=== PATIENT | male | born 1955 | race Two or more races ===

== ENCOUNTER 2024-11-30 10:22 | Inpatient (IN) | payer OTHER ==
[~2024-11-30] VITALS: Ht 170.2 cm; Wt 64.9 kg
[2024-11-30] MEDS ORDERED: ZESTRIL10 M1 PO (10:35)
[2024-11-30] MEDS ORDERED: CARVEDILOL ER40 MG PO (10:35)
[2024-11-30] MEDS ORDERED: AMIODARONE HCL200 MG PO (10:37)
[2024-11-30] MEDS ORDERED: ATORVASTATIN CA40 MG PO (10:38)
[2024-11-30] MEDS ORDERED: LASIX20 MG PO (10:38)
[2024-11-30] MEDS ORDERED: WARFARIN SODIUM4 MG PO (10:38)
--- NOTE | 2024-11-30 10:41 | NUR ---
SE RECIBE PTE ALERTA Y ORIENTADO X3 . PTE [facility]AS [facility] DE [facility]ACE 3 COPE CON HEMOGLOBINA DE 7. PTE REFIERE SANGRADO RECTAL HACE SEYMOUR COPE Y DOLOR AL EVACUAR. PTE REFIERE MAREOS. SE MIDEN S/V Y SE UBICA.
[2024-11-30] MEDS ORDERED: 0.9 % SODIUM CHLORIDE 1,000 ML IV STA (11:03)
--- NOTE | 2024-11-30 11:49 | NUR ---
SE REALIZA LAB Y SE ORIENTA A PTE QUIEN REFIERE ENTENDER Y ACEPTAR. SE NOTIFICA ESTUDIO PENDIENTE A SECRETARIA. SE REALIZA EKG Y SE PRESENTA A DR. LEI
[2024-11-30 12:14] LABS: HEMATOCRIT 25.4 % (39.0-48.0); MEAN CELL VOLUME 87.6 fL (80.0-100.00); MEAN CORPUSCULAR HGB CONC 32.1 g/dl (32.0-36.0); PLATELET COUNT 325 K/uL (150-450); RED CELL DISTRIBUTION WIDTH 16.2 % (11.5-14.5)
[2024-11-30 12:15] LABS: HEMOGLOBIN 8.2 g/dL (13-16.00); MEAN CORPUSCULAR HEMOGLOBIN 28.2 pg (27.00-32.0)
[2024-11-30 12:17] LABS: PARTIAL THROMBOPLASTIN TIME 52.5 SECONDS (22.0-34.0)
[2024-11-30 12:29] LABS: ALBUMIN 3.4 gm/dL (3.4-5.0); ALKALINE PHOSPHATASE 59 U/L (50-136); ALT/SGPT 18 U/L (12-78); AMYLASE 56 U/L (25-115); ANION GAP 7 (10.0-20.0); AST/SGOT 19 U/L (15-37); BILIRUBIN TOTAL 0.29 mg/dL (0.3-1.2); BILIRUBIN,CONJUGATED < 0.10 mg/dL (0.0-0.2); BILIRUBIN,UNCONJUGATED 0.19 mg/dL (0.0-0.6); BLOOD UREA NITROGEN 15 mg/dL (7-18); BUN CREA RATIO 13 (7.0-25.0); CALCIUM 9.1 mg/dL (8.5-10.1); CARBON DIOXIDE 28 mEq/L (21-32); CHLORIDE 111 mmol/L (98-107); CREATININE SERUM 1.16 mg/dL (0.70-1.30); GFR 62.61; GLUCOSE FASTING 88 mg/dL (65-100); LIPASE 43 U/L (13-75); OSMOLALITY SERUM 283 MOSM/KG (275-295); POTASSIUM 4.45 mEq/L (3.5-5.1); SODIUM 142 mmol/L (136-145); TOTAL PROTEIN 7.4 gm/dL (6.4-8.2)
[2024-11-30 12:32] LABS: PROTHROMBIN TIME > 90.0 SECONDS (9.0-11.5)
[2024-11-30] MEDS ORDERED: FAMOTIDINE/PF 20 MG/2 ML VIAL ONE (12:45)
[2024-11-30] MEDS ORDERED: ONDANSETRON HCL 2 MG/ML VIAL ONE (12:45)
[2024-11-30] MEDS ORDERED: DIATRIZOATE MEGLUMINE, SODIUM 30 ML BOTTLE ONE (12:45)
[2024-11-30 13:56] LABS: PH,URINE 5.5 (5.0-8.0); URINE APPEARANCE Clear; URINE BILIRRUBIN Negative (NEGATIVE); URINE BLOOD Negative; URINE COLOR Yellow; URINE GLUCOSE Negative (NEGATIVE); URINE KETONE Trace (NEGATIVE); URINE LEUKOCYTE Negative; URINE NITRATE Negative; URINE PROTEIN Trace (NEGATIVE)
[2024-11-30 14:00] LABS: URINE BACTERIA 15.9 uL (0.0-1933); URINE CAST 1.91 uL (0.0-1.40); URINE EPITHELIAL CELLS 6.4 uL (0.0-38.8); URINE RBC 4.4 uL (0.0-20.8); URINE WBC 3.3 uL (0.0-23.2)
[2024-11-30 14:04] LABS: FECAL LEUKOCYTES POSITIVE (NEGATIVE); ob POSITIVE (NEGATIVE)
[2024-11-30 14:18] LABS: INFLUENZA A AG NEGATIVE (NEGATIVE)
[2024-11-30] MEDS ORDERED: MORPHINE SULFATE 4 MG/ML CARTRIDGE IV ONE (17:30)
[2024-11-30] MEDS ORDERED: PHYTONADIONE 10 MG/ML AMPUL IV ONE (17:30)
[2024-11-30] MEDS ORDERED: PANTOPRAZOLE SODIUM 40 MG/VIAL VIAL IV ONE (17:30)
[2024-11-30] MEDS ORDERED: METRONIDAZOLE/SODIUM CHLORIDE 100 ML IV SCH (17:33)
[2024-11-30] MEDS ORDERED: CEFTRIAXONE SODIUM 2,000 MG in 0.9 % SODIUM CHLORIDE 100 ML IV SCH (17:33)
[2024-11-30] MEDS ORDERED: ACETAMINOPHEN 500 MG GEL..CAP PO PRN (17:45)
[2024-11-30] MEDS ORDERED: MORPHINE SULFATE 4 MG/ML CARTRIDGE IV PRN (17:45)
[2024-11-30] MEDS ORDERED: 0.9 % SODIUM CHLORIDE 1,000 ML IV SCH (17:45)
[2024-11-30] MEDS ORDERED: ONDANSETRON HCL 4 MG in 0.9 % SODIUM CHLORIDE 50 ML IV PRN (17:45)
[2024-11-30] MEDS ORDERED: CEFTRIAXONE SODIUM 2,000 MG VIAL ONE (17:57)
[2024-11-30] MEDS ORDERED: PHYTONADIONE 10 MG/ML AMPUL ONE (19:09)
[2024-11-30] MEDS ORDERED: ENALAPRILAT DIHYDRATE 1.25 MG/ML VIAL IV PRN (19:15)
[2024-11-30 20:00] VITALS: BP 155/70; O2SAT 100
[2024-11-30 21:00] VITALS: BP 130/50; O2SAT 100
[2024-11-30] MEDS ORDERED: CIPROFLOXACIN IN 5 % DEXTROSE 200 ML IV SCH (21:00)
[2024-11-30 23:38] VITALS: BP 97/51; O2SAT 100
[2024-12-01 04:04] VITALS: BP 105/50; O2SAT 100
[2024-12-01 08:46] VITALS: BP 156/64; O2SAT 100
[2024-12-01] MEDS ORDERED: PANTOPRAZOLE SODIUM 40 MG/VIAL VIAL IV SCH (09:00)
[2024-12-01] MEDS ORDERED: AMIODARONE HCL 200 MG TABLET PO SCH (09:00)
[2024-12-01 18:10] VITALS: BP 144/77
[2024-12-01 23:30] VITALS: BP 167/72; O2SAT 97
[2024-12-02 03:03] VITALS: BP 128/67
[2024-12-02 06:18] LABS: HEMATOCRIT 29.9 % (39.0-48.0); MEAN CELL VOLUME 82.1 fL (80.0-100.00); MEAN CORPUSCULAR HGB CONC 32.6 g/dl (32.0-36.0); PLATELET COUNT 273 K/uL (150-450); RED BLOOD COUNT 3.64 M/uL (4.00-6.00)
[2024-12-02 06:29] LABS: INR 1.3; PROTHROMBIN TIME 13.9 SECONDS (9.0-11.5)
[2024-12-02 06:48] LABS: ALBUMIN 2.9 gm/dL (3.4-5.0); BILIRUBIN TOTAL 0.95 mg/dL (0.3-1.2); CALCIUM 8.5 mg/dL (8.5-10.1); CREATININE SERUM 0.9 mg/dL (0.70-1.30); GFR 83.91; GLOBULINA 3.3 G/DL (2.4-3.5); MAGNESIUM 1.6 mg/dL (1.8-2.4); PHOSPHOROUS 3.3 mg/dL (2.5-4.9); POTASSIUM 4.24 mEq/L (3.5-5.1); TOTAL PROTEIN 6.2 gm/dL (6.4-8.2)
[2024-12-02 06:49] LABS: C-REACTIVE PROTEIN 5.47 MG/DL (0.00-0.29)
[2024-12-02 07:27] LABS: HEMOGLOBIN 9.7 g/dL (13-16.00); MEAN CORPUSCULAR HEMOGLOBIN 26.6 pg (27.00-32.0)
[2024-12-02 07:28] LABS: RED CELL DISTRIBUTION WIDTH 19.6 % (11.5-14.5)
[2024-12-02 09:04] VITALS: BP 120/73
[2024-12-02] MEDS ORDERED: ATORVASTATIN CALCIUM 40 MG TABLET PO SCH (17:00)
[2024-12-02] MEDS ORDERED: CARVEDILOL 6.25 MG TABLET PO SCH (17:00)
[2024-12-02 18:10] VITALS: BP 122/65; O2SAT 100
[2024-12-03 02:44] VITALS: BP 109/57; O2SAT 96
[2024-12-03 06:20] LABS: INR 1.39; PROTHROMBIN TIME 14.8 SECONDS (9.0-11.5)
[2024-12-03] MEDS ORDERED: LISINOPRIL 10 MG TABLET PO SCH (09:00)
[2024-12-03 10:05] VITALS: BP 128/66; O2SAT 96
[2024-12-03 16:30] VITALS: BP 137/70; O2SAT 98
[2024-12-03 20:00] VITALS: BP 122/49; O2SAT 100
[2024-12-04 02:04] VITALS: BP 136/78; O2SAT 97
[2024-12-04 10:19] VITALS: BP 152/76; O2SAT 98
[2024-12-04 17:39] VITALS: BP 138/75; O2SAT 99
[2024-12-05 02:47] VITALS: BP 127/78; O2SAT 98
[2024-12-05 07:48] LABS: HEMOGLOBIN 9.2 g/dL (13-16.00); MEAN CELL VOLUME 83.4 fL (80.0-100.00); MEAN CORPUSCULAR HEMOGLOBIN 27.5 pg (27.00-32.0); PLATELET COUNT 251 K/uL (150-450); RED BLOOD COUNT 3.36 M/uL (4.00-6.00); RED CELL DISTRIBUTION WIDTH 19.2 % (11.5-14.5)
[2024-12-05 10:04] VITALS: BP 134/71; O2SAT 97
[2024-12-05 17:10] VITALS: BP 146/72
[2024-12-05] MEDS ORDERED: ENOXAPARIN SODIUM 60 MG/0.6 ML SYRINGE SUBCUTANEO SCH (21:00)
[2024-12-06 01:32] VITALS: BP 156/74; O2SAT 96
[2024-12-06 08:21] VITALS: BP 165/86; O2SAT 75
[2024-12-06 16:56] VITALS: BP 151/76
[2024-12-06] MEDS ORDERED: FUROsemide 20 MG/2 ML VIAL IV SCH (17:00)
[2024-12-07 01:49] VITALS: BP 148/71
[2024-12-07 07:43] LABS: HEMATOCRIT 27.3 % (39.0-48.0); HEMOGLOBIN 9.1 g/dL (13-16.00); MEAN CELL VOLUME 82.4 fL (80.0-100.00); MEAN CORPUSCULAR HEMOGLOBIN 27.3 pg (27.00-32.0); MEAN CORPUSCULAR HGB CONC 33.2 g/dl (32.0-36.0); PLATELET COUNT 231 K/uL (150-450); RED BLOOD COUNT 3.32 M/uL (4.00-6.00); RED CELL DISTRIBUTION WIDTH 19.3 % (11.5-14.5)
[2024-12-07] MEDS ORDERED: PEG3350/SOD SULF,BICARB,CL/KCL 4,000 ML GALLON PO NR (10:00)
[2024-12-07] MEDS ORDERED: CLONAZEPAM 0.5 MG TABLET PO STA (13:19)
[2024-12-07 15:58] LABS: CALCIUM 8.7 mg/dL (8.5-10.1); CREATININE SERUM 1.01 mg/dL (0.70-1.30); GFR 73.46; POTASSIUM 4.18 mEq/L (3.5-5.1)
[2024-12-07 17:09] VITALS: BP 162/79
[2024-12-08 01:06] VITALS: BP 140/69; O2SAT 98
[2024-12-08 08:23] VITALS: BP 139/64; O2SAT 98
[2024-12-08] MEDS ORDERED: FUROsemide 20 MG/2 ML VIAL IV SCH (09:00)
[2024-12-08 11:06] LABS: campy Final report (.)
[2024-12-08 12:48] LABS: HEMATOCRIT 31.8 % (39.0-48.0); HEMOGLOBIN 10.2 g/dL (13-16.00); MEAN CELL VOLUME 83.1 fL (80.0-100.00); MEAN CORPUSCULAR HEMOGLOBIN 26.7 pg (27.00-32.0); MEAN CORPUSCULAR HGB CONC 32.2 g/dl (32.0-36.0); PLATELET COUNT 300 K/uL (150-450); RED BLOOD COUNT 3.82 M/uL (4.00-6.00)
[2024-12-08 13:24] LABS: INR 1.33; PROTHROMBIN TIME 14.2 SECONDS (9.0-11.5)
[2024-12-08] MEDS ORDERED: fentaNYL CITRATE 50 MCG/ML AMPUL IV PUSH ONE (16:15)
[2024-12-08] MEDS ORDERED: DIPHENHYDRAMINE HCL 50 MG/ML VIAL 1ML IV NR (16:15)
[2024-12-08] MEDS ORDERED: MIDAZOLAM HCL 2 MG/2 ML VIAL IV ONE (16:15)
[2024-12-08] MEDS ORDERED: ONDANSETRON HCL 2 MG/ML VIAL IV ONE (16:15)
[2024-12-08] MEDS ORDERED: METRONIDAZOLE/SODIUM CHLORIDE 100 ML IV SCH (17:00)
[2024-12-08 17:36] VITALS: BP 124/58
[2024-12-08] MEDS ORDERED: ONDANSETRON HCL 2 MG/ML VIAL IV PRN (17:45)
[2024-12-08] MEDS ORDERED: POLYETHYLENE GLYCOL 3350 17 GM BLIST.PACK PO SCH (21:00)
[2024-12-08] MEDS ORDERED: CIPROFLOXACIN IN 5 % DEXTROSE 200 ML IV SCH (21:00)
[2024-12-09] MEDS ORDERED: POLYETHYLENE GLYCOL 3350 17 GM BLIST.PACK PO SCH (09:00)
[2024-12-10 02:04] VITALS: BP 131/64; O2SAT 98
[2024-12-10 09:19] VITALS: BP 131/67
[2024-12-10 18:04] VITALS: BP 114/55; O2SAT 97
[2024-12-10] MEDS ORDERED: CLONAZEPAM 0.5 MG TABLET PO SCH (21:00)
[2024-12-11 02:33] VITALS: BP 113/54; O2SAT 97
[2024-12-11 09:42] VITALS: BP 124/57; O2SAT 97
[2024-12-11 15:06] LABS: quan ag 0 IU/mL (.); quan ag 0.01 IU/mL (.); quan mito 0.61 IU/mL (.); quant nil 0 IU/mL (.)
== END 2024-12-11 16:46 | disposition home or self-care (01) | DRG 375 ==
LOC: ER 10:23 → MEDI 20:13 → ICU-2 20:13 → SEC-K 12-01 11:38 → MEDI 12-01 14:16
PROVIDERS: General Practice; Internal Medicine; Internal Medicine Infectious Disease; Student in an Organized Health Care Education/Training Program; ADMIT Internal Medicine; ATTEND Internal Medicine
PROC: BW21ZZZ Computerized Tomography (CT Scan) of Abdomen and Pelvis (ICD-10-PCS; 2024-11-30)
PROC: 4A12X4Z Monitoring of Cardiac Electrical Activity, External Approach (ICD-10-PCS; 2024-12-01)
PROC: 30233N1 Transfusion of Nonautologous Red Blood Cells into Peripheral Vein, Percutaneous Approach (ICD-10-PCS; 2024-12-01)
PROC: BW24ZZZ Computerized Tomography (CT Scan) of Chest and Abdomen (ICD-10-PCS; 2024-12-03)
PROC: BW3GYZZ Magnetic Resonance Imaging (MRI) of Pelvic Region using Other Contrast (ICD-10-PCS; 2024-12-03)
PROC: B24BZZZ Ultrasonography of Heart with Aorta (ICD-10-PCS; 2024-12-05)
PROC: 0DBP8ZX Excision of Rectum, Via Natural or Artificial Opening Endoscopic, Diagnostic (ICD-10-PCS; principal; 2024-12-08)
DX: C20 Malignant neoplasm of rectum (principal); K62.5 Hemorrhage of anus and rectum; E78.5 Hyperlipidemia, unspecified; K62.89 Other specified diseases of anus and rectum; I25.10 Atherosclerotic heart disease of native coronary artery without angina pectoris; I11.0 Hypertensive heart disease with heart failure; I50.9 Heart failure, unspecified; G47.33 Obstructive sleep apnea (adult) (pediatric); I48.91 Unspecified atrial fibrillation; D63.0 Anemia in neoplastic disease
CPT/HCPCS: 72196

== ENCOUNTER 2025-01-12 10:12 | Inpatient (IN) | payer OTHER ==
[~2025-01-12] VITALS: Ht 167.6 cm; Wt 67.1 kg
[~2025-01-12 10:12] MED LIST: AMIODARONE HCL200 MG PO; ATORVASTATIN CA40 MG PO; CARVEDILOL ER40 MG PO; LASIX20 MG PO; WARFARIN SODIUM4 MG PO; ZESTRIL10 M1 PO
[2025-01-12] MEDS ORDERED: ELIQUIS5 M1 PO (10:34)
--- NOTE | 2025-01-12 10:34 | NUR ---
PTE RFIEFE DOLOR DOLOR ABDOMIHAL Y DIARREAS DESDE HACE VARIOS COPE. SE LE IVETTE S/V Y SE UBICA EN PASILLO.
[2025-01-12] MEDS ORDERED: FAMOTIDINE/PF 20 MG/2 ML VIAL ONE (11:59)
[2025-01-12] MEDS ORDERED: FAMOtidine 10 MG/ML (4ML VIAL) IV ONE (12:00)
[2025-01-12] MEDS ORDERED: CLONAZEPAM 0.5 MG TABLET PO ONE (12:00)
[2025-01-12] MEDS ORDERED: 0.9 % SODIUM CHLORIDE 1,000 ML IV ONE (12:00)
[2025-01-12 13:09] LABS: BASO % 0.2 % (0.1-1.2); EOS # 0.03 (0.04-0.54); EOS % 0.3 % (0.7-7.0); HEMATOCRIT 30.3 % (40.1-51.0); HEMOGLOBIN 9.4 g/dL (13.7-17.5); LYMPH # 1.66 (1.18-3.74); LYMPH % 15.3 % (19.3-53.1); MEAN CORPUSCULAR HEMOGLOBIN 25.9 pg (25.6-32.2); MONO # 1.78 (0.24-0.82); NEUT # 7.34 (1.56-6.13); NEUT % 67.5 % (34.0-71.1); PLATELET COUNT 344 K/uL (163-369); RED BLOOD COUNT 3.63 M/uL (4.63-6.08); RED CELL DISTRIBUTION WIDTH 19.3 % (11.6-14.4)
[2025-01-12 13:16] LABS: MONO % 16.4 % (4.7-12.5)
--- NOTE | 2025-01-12 13:19 | NUR ---
SE ORIENTA A PTE SOBRE TX MEDICO EL MISMO INDICA ENTENDER Y ACEPTAR, SE AZALIA MUESTRAS DE LAB MAS SE ADMINISTRAN MEDICMENTOS NATY ORDEN MEDICA BAJO MEDIDAS ASEPTICAS.
[2025-01-12 13:34] LABS: ALBUMIN 3.6 gm/dL (3.4-5.0); BILIRUBIN TOTAL 0.52 mg/dL (0.3-1.2); CALCIUM 9.2 mg/dL (8.5-10.1); CREATININE SERUM 1.23 mg/dL (0.70-1.30); GFR 58.52; POTASSIUM 4.12 mEq/L (3.5-5.1); TOTAL PROTEIN 8.6 gm/dL (6.4-8.2)
[2025-01-12] MEDS ORDERED: 0.9 % SODIUM CHLORIDE 1,000 ML IV SCH (19:45)
[2025-01-12] MEDS ORDERED: ONDANSETRON HCL 4 MG in 0.9 % SODIUM CHLORIDE 50 ML IV PRN (19:45)
[2025-01-12] MEDS ORDERED: KETOROLAC TROMETHAMINE 30 MG VIAL IU PRN (20:00)
[2025-01-12] MEDS ORDERED: ACETAMINOPHEN 325 MG TABLET PO PRN (20:00)
[2025-01-12] MEDS ORDERED: CLONAZEPAM 0.5 MG TABLET PO SCH (21:00)
[2025-01-12 21:02] LABS: COVID-19 AG NEGATIVE (NEGATIVE); INFLUENZA A AG NEGATIVE (NEGATIVE); INFLUENZA B AG NEGATIVE (NEGATIVE)
[2025-01-12 21:53] LABS: PH,URINE 5.5 (5.0-8.0); URINE APPEARANCE Clear; URINE BILIRRUBIN Negative (NEGATIVE); URINE BLOOD Negative; URINE COLOR Yellow; URINE GLUCOSE Negative (NEGATIVE); URINE KETONE 15 (NEGATIVE); URINE LEUKOCYTE Negative; URINE NITRATE Negative; URINE PROTEIN 30 (NEGATIVE); URINE UROBILINOGEN 0.2 E.U./dl
[2025-01-12 21:56] LABS: URINE BACTERIA 7.3 uL (0.0-1933); URINE EPITHELIAL CELLS 2.6 uL (0.0-38.8); URINE RBC 7.9 uL (0.0-20.8); URINE WBC 3.1 uL (0.0-23.2)
[2025-01-12 22:07] LABS: URINE CAST 0.14 uL (0.0-1.40)
[2025-01-13 00:52] VITALS: BP 135/76
[2025-01-13] MEDS ORDERED: KETOROLAC TROMETHAMINE 30 MG VIAL IV PRN (07:15)
[2025-01-13] MEDS ORDERED: ACETAMINOPHEN 500 MG GEL..CAP PO PRN (07:15)
[2025-01-13 08:58] LABS: INR 1.1; PARTIAL THROMBOPLASTIN TIME 24.2 SECONDS (22.0-34.0); PROTHROMBIN TIME 11.9 SECONDS (9.0-11.5)
[2025-01-13] MEDS ORDERED: LISINOPRIL 10 MG TABLET PO SCH (09:00)
[2025-01-13] MEDS ORDERED: APIXABAN 5 MG TABLET PO SCH (09:00)
[2025-01-13] MEDS ORDERED: FUROsemide 20 MG TABLET PO SCH (09:00)
[2025-01-13] MEDS ORDERED: CARVEDILOL 6.25 MG TABLET PO SCH (09:00)
[2025-01-13] MEDS ORDERED: PANTOPRAZOLE SODIUM 40 MG/VIAL VIAL IV SCH ×2 (09:00→12:00)
[2025-01-13] MEDS ORDERED: AMIODARONE HCL 200 MG TABLET PO SCH (09:00)
[2025-01-13 09:13] VITALS: BP 101/46; O2SAT 96
[2025-01-13 09:30] LABS: ALBUMIN 2.9 gm/dL (3.4-5.0); BILIRUBIN TOTAL 0.52 mg/dL (0.3-1.2); CALCIUM 8.4 mg/dL (8.5-10.1); CREATININE SERUM 0.9 mg/dL (0.70-1.30); GFR 83.91; GLOBULINA 3.5 G/DL (2.4-3.5); POTASSIUM 3.94 mEq/L (3.5-5.1); TOTAL PROTEIN 6.4 gm/dL (6.4-8.2)
[2025-01-13 15:07] LABS: BASO % 0.1 % (0.1-1.2); EOS # 0.14 (0.04-0.54); EOS % 1.8 % (0.7-7.0); LYMPH # 1.51 (1.18-3.74); LYMPH % 19.8 % (19.3-53.1); MEAN CORPUSCULAR HEMOGLOBIN 26.6 pg (25.6-32.2); NEUT # 4.53 (1.56-6.13); NEUT % 59.6 % (34.0-71.1); PLATELET COUNT 252 K/uL (163-369); RED BLOOD COUNT 2.97 M/uL (4.63-6.08); RED CELL DISTRIBUTION WIDTH 19.3 % (11.6-14.4)
[2025-01-13 15:37] LABS: HEMATOCRIT 24.6 % (40.1-51.0); HEMOGLOBIN 7.9 g/dL (13.7-17.5); MONO % 18.4 % (4.7-12.5)
[2025-01-13] MEDS ORDERED: ATORVASTATIN CALCIUM 40 MG TABLET PO SCH (17:00)
[2025-01-13 18:24] VITALS: BP 123/58; O2SAT 99
[2025-01-13] MEDS ORDERED: CLONAZEPAM 1 MG TABLET PO SCH (21:00)
[2025-01-13 23:31] LABS: BASO % 0.1 % (0.1-1.2); EOS # 0.19 (0.04-0.54); EOS % 2.3 % (0.7-7.0); LYMPH # 1.64 (1.18-3.74); LYMPH % 19.6 % (19.3-53.1); MEAN CORPUSCULAR HEMOGLOBIN 26.3 pg (25.6-32.2); MONO # 1.61 (0.24-0.82); NEUT # 4.89 (1.56-6.13); NEUT % 58.4 % (34.0-71.1); PLATELET COUNT 254 K/uL (163-369); RED BLOOD COUNT 3.15 M/uL (4.63-6.08); RED CELL DISTRIBUTION WIDTH 19.6 % (11.6-14.4)
[2025-01-13 23:44] LABS: HEMATOCRIT 26.5 % (40.1-51.0); MONO % 19.2 % (4.7-12.5)
[2025-01-13 23:45] LABS: HEMOGLOBIN 8.3 g/dL (13.7-17.5)
[2025-01-14 01:59] VITALS: BP 99/47; O2SAT 98
[2025-01-14 06:49] LABS: ob POSITIVE (NEGATIVE)
[2025-01-14 08:48] VITALS: BP 120/46; O2SAT 98
[2025-01-14 11:38] LABS: BASO % 0.1 % (0.1-1.2); EOS % 1.2 % (0.7-7.0); HEMATOCRIT 30.6 % (40.1-51.0); HEMOGLOBIN 9.8 g/dL (13.7-17.5); LYMPH # 1.33 (1.18-3.74); LYMPH % 16.3 % (19.3-53.1); MEAN CORPUSCULAR HEMOGLOBIN 27.4 pg (25.6-32.2); MONO # 1.67 (0.24-0.82); NEUT # 5.02 (1.56-6.13); NEUT % 61.5 % (34.0-71.1); PLATELET COUNT 248 K/uL (163-369); RED BLOOD COUNT 3.58 M/uL (4.63-6.08); RED CELL DISTRIBUTION WIDTH 18.6 % (11.6-14.4)
[2025-01-14 11:44] LABS: MONO % 20.5 % (4.7-12.5)
[2025-01-14 17:46] VITALS: BP 129/59; O2SAT 100
[2025-01-15 02:08] VITALS: BP 109/56; O2SAT 99
[2025-01-15 08:55] VITALS: BP 129/80; O2SAT 100
[2025-01-15] MEDS ORDERED: BISMUTH SUBSALICYLATE 524 MG/30 ML BLIST.PACK PO PRN (15:15)
[2025-01-15 16:16] VITALS: BP 133/61; O2SAT 100
[2025-01-15] MEDS ORDERED: LACTOBACILLUS ACIDOPHILUS 1 CAP CAP PO SCH (17:00)
[2025-01-16 02:17] VITALS: BP 114/71; O2SAT 98
[2025-01-16 08:30] VITALS: BP 114/69; O2SAT 98
[2025-01-16] MEDS ORDERED: HEPARIN SODIUM,PORCINE/PF 100 UNIT/ML SYRINGE IV ONE (13:37)
[2025-01-16] MEDS ORDERED: LIDOCAINE HCL 1% 20 ML VIAL IJ ONE (13:37)
[2025-01-16 17:52] VITALS: BP 119/69; O2SAT 97
[2025-01-17 02:04] VITALS: BP 100/59; O2SAT 100
[2025-01-17 09:38] VITALS: BP 115/51; O2SAT 98
[2025-01-17] MEDS ORDERED: HEPARIN SODIUM,PORCINE/PF 100 UNIT/ML SYRINGE IV ONE (15:19)
[2025-01-17] MEDS ORDERED: KETOROLAC TROMETHAMINE 30 MG VIAL ONE (18:02)
[2025-01-18 02:27] VITALS: BP 116/58; O2SAT 98
[2025-01-18 08:34] LABS: BASO % 0.1 % (0.1-1.2); EOS # 0.08 (0.04-0.54); EOS % 0.9 % (0.7-7.0); LYMPH # 1.23 (1.18-3.74); LYMPH % 13.7 % (19.3-53.1); MEAN CORPUSCULAR HEMOGLOBIN 27.2 pg (25.6-32.2); MONO # 1.82 (0.24-0.82); NEUT % 64.8 % (34.0-71.1); PLATELET COUNT 184 K/uL (163-369); RED BLOOD COUNT 3.02 M/uL (4.63-6.08)
[2025-01-18 08:45] LABS: CALCIUM 8.3 mg/dL (8.5-10.1); CREATININE SERUM 0.99 mg/dL (0.70-1.30); GFR 75.17; POTASSIUM 3.85 mEq/L (3.5-5.1)
[2025-01-18 09:21] VITALS: BP 120/63; O2SAT 96
[2025-01-18 09:35] LABS: HEMATOCRIT 25.8 % (40.1-51.0); HEMOGLOBIN 8.2 g/dL (13.7-17.5); MONO % 20.3 % (4.7-12.5)
== END 2025-01-18 18:17 | disposition home or self-care (01) | DRG 378 ==
LOC: ER 10:12 → MEDJ 20:06
PROVIDERS: General Practice; Student in an Organized Health Care Education/Training Program; ADMIT Internal Medicine; ATTEND Internal Medicine
PROC: BW21YZZ Computerized Tomography (CT Scan) of Abdomen and Pelvis using Other Contrast (ICD-10-PCS; principal; 2025-01-12)
PROC: 30233N1 Transfusion of Nonautologous Red Blood Cells into Peripheral Vein, Percutaneous Approach (ICD-10-PCS; 2025-01-14)
PROC: 05HM33Z Insertion of Infusion Device into Right Internal Jugular Vein, Percutaneous Approach (ICD-10-PCS; 2025-01-17)
DX: K62.5 Hemorrhage of anus and rectum (principal); C20 Malignant neoplasm of rectum; K62.89 Other specified diseases of anus and rectum; D63.0 Anemia in neoplastic disease

== ENCOUNTER 2025-01-20 18:11 | Emergency (ER) | payer OTHER ==
[~2025-01-20] VITALS: Ht 294.6 cm; Wt 52.6 kg
[~2025-01-20 18:11] MED LIST changes: +ELIQUIS5 M1 PO
[2025-01-20] MEDS ORDERED: LORazepam 1 MG TABLET PO ONE (19:45)
[2025-01-20] MEDS ORDERED: 0.9 % SODIUM CHLORIDE 1,000 ML IV SCH (19:45)
[2025-01-20 20:56] LABS: BASO % 0.3 % (0.1-1.2); EOS # 0.03 (0.04-0.54); EOS % 0.4 % (0.7-7.0); HEMOGLOBIN 9.1 g/dL (13.7-17.5); LYMPH # 1.81 (1.18-3.74); LYMPH % 24.3 % (19.3-53.1); MEAN CORPUSCULAR HEMOGLOBIN 26.5 pg (25.6-32.2); MONO # 1.46 (0.24-0.82); NEUT # 4.11 (1.56-6.13); NEUT % 55.1 % (34.0-71.1); PLATELET COUNT 202 K/uL (163-369); RED BLOOD COUNT 3.44 M/uL (4.63-6.08); RED CELL DISTRIBUTION WIDTH 18.5 % (11.6-14.4)
[2025-01-20 20:57] LABS: MONO % 19.6 % (4.7-12.5)
[2025-01-20 21:04] LABS: PH,URINE 7.5 (5.0-8.0); URINE APPEARANCE Clear; URINE BILIRRUBIN Negative (NEGATIVE); URINE BLOOD Negative; URINE COLOR Yellow; URINE GLUCOSE Negative (NEGATIVE); URINE KETONE 15 (NEGATIVE); URINE LEUKOCYTE Negative; URINE NITRATE Negative; URINE PROTEIN Negative (NEGATIVE)
[2025-01-20 21:08] LABS: URINE RBC 2.2 uL (0.0-20.8)
[2025-01-20 21:13] LABS: URINE BACTERIA 3.6 uL (0.0-1933); URINE EPITHELIAL CELLS 0.6 uL (0.0-38.8); URINE WBC 0.4 uL (0.0-23.2)
[2025-01-20 21:19] LABS: CALCIUM 9.2 mg/dL (8.5-10.1); CREATININE SERUM 0.92 mg/dL (0.70-1.30); GFR 81.81; POTASSIUM 4.02 mEq/L (3.5-5.1)
== END 2025-01-20 23:38 | disposition home or self-care (01) ==
LOC: ER 18:26
PROVIDERS: Emergency Medicine
DX: R60.0 Localized edema (principal); C18.9 Malignant neoplasm of colon, unspecified; I10 Essential (primary) hypertension; I51.7 Cardiomegaly; Z95.828 Presence of other vascular implants and grafts

== ENCOUNTER 2025-02-12 10:34 | Inpatient (IN) | payer OTHER ==
[~2025-02-12] VITALS: Ht 170.2 cm; Wt 52.2 kg
[2025-02-12] MEDS ORDERED: 0.9 % SODIUM CHLORIDE 1,000 ML IV STA (11:12)
--- NOTE | 2025-02-12 11:19 | NUR ---
PTE ALERTA Y ORIENTADO X3 REFIERE QUE VINO PARA BRAYAN MEDICA Y PRESENTO S/V BAJOS Y EL MISMO ES PTE DE CANCER. SE MIDEN S/V PARAMETROS BAJOS Y SE UBICA EN CAMA 13.
--- NOTE | 2025-02-12 11:55 | NUR ---
PTE. EVALUADO Y TRATADO POR DR. GARCÍA, CLIENTE PRESENTANDO [id number] Y DEBILIDAD GENERALIZADA. SE COLECTRAN MUESTRAS POR ORDEN MEDICA BAJO MEDIDAS ASEPTICAS Y SE ADMINISTRA IV FLUID [id number]. PTE Y FAMILAR SON ORIENTADOS SOBRE PROCEDIMIENTO REALIZADOS Y PROCESO DE RE-EVALUACION MEDICA. SE MANTIENE EN OBSERVACION POR CAMBIOS DENTRO DE J[place] CONDICION.
[2025-02-12 12:00] LABS: URINE APPEARANCE Clear; URINE BILIRRUBIN Negative (NEGATIVE); URINE BLOOD Negative; URINE COLOR Yellow; URINE GLUCOSE Negative (NEGATIVE); URINE KETONE Negative (NEGATIVE); URINE LEUKOCYTE Negative; URINE NITRATE Negative; URINE PROTEIN Negative (NEGATIVE); URINE UROBILINOGEN 0.2 E.U./dl
[2025-02-12 12:01] LABS: URINE EPITHELIAL CELLS 3.9 uL (0.0-38.8); URINE WBC 3.6 uL (0.0-23.2)
[2025-02-12 12:06] LABS: URINE BACTERIA 3.6 uL (0.0-1933); URINE RBC 1.6 uL (0.0-20.8)
[2025-02-12 12:19] LABS: BASO % 0.3 % (0.1-1.2); LYMPH # 1.72 (1.18-3.74); LYMPH % 22.9 % (19.3-53.1); MEAN CORPUSCULAR HEMOGLOBIN 25.3 pg (25.6-32.2); MONO # 1.44 (0.24-0.82); NEUT # 4.31 (1.56-6.13); NEUT % 57.3 % (34.0-71.1); PLATELET COUNT 265 K/uL (163-369); RED BLOOD COUNT 3.24 M/uL (4.63-6.08); RED CELL DISTRIBUTION WIDTH 17.9 % (11.6-14.4)
[2025-02-12 12:21] LABS: HEMOGLOBIN 8.2 g/dL (13.7-17.5); MONO % 19.2 % (4.7-12.5)
[2025-02-12 12:47] LABS: ALBUMIN 3.2 gm/dL (3.4-5.0); BILIRUBIN TOTAL 0.32 mg/dL (0.3-1.2); CALCIUM 9.4 mg/dL (8.5-10.1); CREATININE SERUM 1.67 mg/dL (0.70-1.30); GFR 41.12; GLOBULINA 4.7 G/DL (2.4-3.5); POTASSIUM 4.26 mEq/L (3.5-5.1); TOTAL PROTEIN 7.9 gm/dL (6.4-8.2)
[2025-02-12 18:11] LABS: BASO % 0.4 % (0.1-1.2); LYMPH # 1.98 (1.18-3.74); LYMPH % 26.2 % (19.3-53.1); MEAN CORPUSCULAR HEMOGLOBIN 25.2 pg (25.6-32.2); MONO # 1.13 (0.24-0.82); NEUT # 4.37 (1.56-6.13); NEUT % 57.9 % (34.0-71.1); PLATELET COUNT 310 K/uL (163-369); RED BLOOD COUNT 3.18 M/uL (4.63-6.08); RED CELL DISTRIBUTION WIDTH 17.8 % (11.6-14.4)
[2025-02-12 18:20] LABS: HEMATOCRIT 26.4 % (40.1-51.0)
[2025-02-12] MEDS ORDERED: 0.9 % SODIUM CHLORIDE 1,000 ML IV SCH (19:00)
[2025-02-12] MEDS ORDERED: ACETAMINOPHEN 500 MG GEL..CAP PO PRN (19:00)
[2025-02-12] MEDS ORDERED: 0.9 % SODIUM CHLORIDE 1,000 ML IV ONE (19:00)
[2025-02-12] MEDS ORDERED: PANTOPRAZOLE SODIUM 40 MG/VIAL VIAL IV SCH (19:01)
[2025-02-12] MEDS ORDERED: PIPERACILLIN/TAZOBACTAM SODIUM 2.25 GM in DEXTROSE 5 % IN WATER 50 ML IV SCH (20:09)
[2025-02-12 21:20] LABS: ob POSITIVE (NEGATIVE)
[2025-02-12 22:10] VITALS: BP 120/66; O2SAT 97
[2025-02-12 22:53] LABS: INR 1.05; PROTHROMBIN TIME 11.4 SECONDS (9.0-11.5)
[2025-02-12 22:57] LABS: PARTIAL THROMBOPLASTIN TIME < 20.0 SECONDS (22.0-34.0)
[2025-02-13 01:11] VITALS: BP 143/71; O2SAT 95
[2025-02-13 08:24] VITALS: BP 145/72; O2SAT 100
[2025-02-13] MEDS ORDERED: AMIODARONE HCL 200 MG TABLET PO SCH (09:00)
[2025-02-13] MEDS ORDERED: ATORVASTATIN CALCIUM 40 MG TABLET PO SCH (09:00)
[2025-02-13 16:54] VITALS: BP 131/73; O2SAT 98
[2025-02-13] MEDS ORDERED: LACTOBACILLUS ACIDOPHILUS 1 CAP CAP PO SCH (17:00)
[2025-02-13 21:41] LABS: BASO % 0.1 % (0.1-1.2); HEMATOCRIT 33.9 % (40.1-51.0); HEMOGLOBIN 11.1 g/dL (13.7-17.5); LYMPH # 1.01 (1.18-3.74); LYMPH % 12.8 % (19.3-53.1); MEAN CORPUSCULAR HEMOGLOBIN 26.8 pg (25.6-32.2); MONO # 0.55 (0.24-0.82); NEUT # 6.25 (1.56-6.13); NEUT % 79.3 % (34.0-71.1); PLATELET COUNT 231 K/uL (163-369); RED BLOOD COUNT 4.14 M/uL (4.63-6.08); RED CELL DISTRIBUTION WIDTH 16.6 % (11.6-14.4)
[2025-02-13 22:06] LABS: BILIRUBIN TOTAL 0.97 mg/dL (0.3-1.2); CALCIUM 8.9 mg/dL (8.5-10.1); CREATININE SERUM 1.1 mg/dL (0.70-1.30); GFR 66.57; GLOBULINA 4.1 G/DL (2.4-3.5); POTASSIUM 3.95 mEq/L (3.5-5.1); TOTAL PROTEIN 7.1 gm/dL (6.4-8.2)
[2025-02-14 07:30] VITALS: BP 112/59; O2SAT 97
[2025-02-14 08:00] LABS: BASO % 0.4 % (0.1-1.2); HEMATOCRIT 30.4 % (40.1-51.0); HEMOGLOBIN 10.1 g/dL (13.7-17.5); LYMPH # 1.29 (1.18-3.74); LYMPH % 23.5 % (19.3-53.1); MEAN CORPUSCULAR HEMOGLOBIN 27.3 pg (25.6-32.2); MONO # 0.48 (0.24-0.82); MONO % 8.8 % (4.7-12.5); NEUT # 3.67 (1.56-6.13); NEUT % 66.9 % (34.0-71.1); PLATELET COUNT 207 K/uL (163-369); RED CELL DISTRIBUTION WIDTH 16.8 % (11.6-14.4)
[2025-02-14 16:00] VITALS: BP 105/52; O2SAT 96
[2025-02-15] VITALS: BP 122/60; O2SAT 97
[2025-02-15 08:00] VITALS: BP 130/66; O2SAT 96
[2025-02-15 08:06] LABS: BASO % 0.2 % (0.1-1.2); EOS # 0.01 (0.04-0.54); EOS % 0.2 % (0.7-7.0); HEMATOCRIT 31.2 % (40.1-51.0); HEMOGLOBIN 9.8 g/dL (13.7-17.5); LYMPH # 1.55 (1.18-3.74); LYMPH % 25.2 % (19.3-53.1); MEAN CORPUSCULAR HEMOGLOBIN 26.7 pg (25.6-32.2); MONO # 0.57 (0.24-0.82); MONO % 9.3 % (4.7-12.5); NEUT # 3.99 (1.56-6.13); NEUT % 64.6 % (34.0-71.1); PLATELET COUNT 222 K/uL (163-369); RED BLOOD COUNT 3.67 M/uL (4.63-6.08); RED CELL DISTRIBUTION WIDTH 17.2 % (11.6-14.4)
[2025-02-15 08:51] LABS: CALCIUM 8.8 mg/dL (8.5-10.1); CREATININE SERUM 0.95 mg/dL (0.70-1.30); GFR 78.84; POTASSIUM 4.54 mEq/L (3.5-5.1)
[2025-02-15 16:00] VITALS: BP 131/67; O2SAT 100
[2025-02-15] MEDS ORDERED: OxyCODONE HCL 5 MG TABLET (ROXICODONE) PO PRN (16:45)
[2025-02-16 01:33] VITALS: BP 154/71; O2SAT 100
[2025-02-16 08:00] VITALS: BP 140/60; O2SAT 99
[2025-02-16 16:39] VITALS: BP 127/62; O2SAT 96
[2025-02-16] MEDS ORDERED: SODIUM CHLORIDE 0.45 % 1,000 ML IV SCH (17:30)
== END 2025-02-16 18:37 | disposition home or self-care (01) | DRG 394 ==
LOC: ER 10:48 → SEC-K 19:36 → SURG 19:36
PROVIDERS: Emergency Medicine; General Practice; Student in an Organized Health Care Education/Training Program; ADMIT Internal Medicine; ATTEND Internal Medicine
PROC: BW28ZZZ Computerized Tomography (CT Scan) of Head (ICD-10-PCS; principal; 2025-02-12)
PROC: BW21ZZZ Computerized Tomography (CT Scan) of Abdomen and Pelvis (ICD-10-PCS; 2025-02-12)
PROC: 30233N1 Transfusion of Nonautologous Red Blood Cells into Peripheral Vein, Percutaneous Approach (ICD-10-PCS; 2025-02-13)
DX: K62.89 Other specified diseases of anus and rectum (principal); C20 Malignant neoplasm of rectum; N17.8 Other acute kidney failure; D63.0 Anemia in neoplastic disease; E78.49 Other hyperlipidemia; I10 Essential (primary) hypertension; Z87.891 Personal history of nicotine dependence

== ENCOUNTER 2025-05-06 12:56 | Emergency (ER) | payer OTHER ==
[~2025-05-06] VITALS: Ht 170.2 cm; Wt 50.8 kg
[2025-05-06 13:26] VITALS: BP 99/60; O2SAT 96
[2025-05-06] MEDS ORDERED: FAMOTIDINE/PF 20 MG/2 ML VIAL ONE (15:49)
[2025-05-06] MEDS ORDERED: ONDANSETRON HCL 2 MG/ML VIAL ONE (15:49)
[2025-05-06] MEDS ORDERED: MORPHINE SULFATE 4 MG/ML VIAL IV ONE (22:00)
[2025-05-07] MEDS ORDERED: INTESTINEX680 M1 PO (00:16)
== END 2025-05-07 08:42 | disposition home or self-care (01) ==
LOC: ER 12:56
DX: K62.89 Other specified diseases of anus and rectum (principal); I48.91 Unspecified atrial fibrillation; I10 Essential (primary) hypertension; E78.49 Other hyperlipidemia; K80.20 Calculus of gallbladder without cholecystitis without obstruction; K59.00 Constipation, unspecified; C18.9 Malignant neoplasm of colon, unspecified
CPT/HCPCS: 71045; 74177; 96365; 99284; J2270; Q9965

== ENCOUNTER 2025-05-12 10:09 | Inpatient (IN) | payer OTHER ==
[~2025-05-12] VITALS: Ht 170.2 cm; Wt 49.9 kg
[~2025-05-12 10:09] MED LIST changes: +INTESTINEX680 M1 PO
--- NOTE | 2025-05-12 10:51 | NUR ---
SE RECIBE PTE ALERTA, ORIENTADO X3 ACOMPANADO POR FAMILIAR. PTE REFIERE DIARREAS X3 EN EL JORDIN DE HOY Y SANGRADO RECTAL. SE MIDEN S/V Y SE UBICA.
[2025-05-12] MEDS ORDERED: CHOLESTYRAMINE/ASPARTAME LIGHT 4 G/PKT PACKET PO ONE (11:44)
[2025-05-12] MEDS ORDERED: PANTOPRAZOLE SODIUM 40 MG/VIAL VIAL IV ONE (11:44)
[2025-05-12] MEDS ORDERED: 0.9 % SODIUM CHLORIDE 1,000 ML IV PUSH SCH (11:44)
[2025-05-12] MEDS ORDERED: PIPERACILLIN/TAZOBACTAM SODIUM 2.25 GM in DEXTROSE 5 % IN WATER 50 ML IV SCH (18:26)
[2025-05-12] MEDS ORDERED: LACTOBACILLUS ACIDOPHILUS 1 CAP CAP PO SCH (18:27)
[2025-05-12] MEDS ORDERED: AMIODARONE HCL 200 MG TABLET PO SCH (18:27)
[2025-05-12] MEDS ORDERED: PANTOPRAZOLE SODIUM 40 MG in 0.9 % SODIUM CHLORIDE 8 ML IV PUSH SCH (18:27)
[2025-05-12] MEDS ORDERED: SODIUM CHLORIDE 0.45 % 1,000 ML IV SCH (18:30)
[2025-05-12] MEDS ORDERED: ACETAMINOPHEN 325 MG TABLET PO PRN (18:45)
[2025-05-12] MEDS ORDERED: MORPHINE SULFATE 2 MG/ML SYRINGE IV PRN (19:00)
[2025-05-12 19:26] LABS: BASO % 0.3 % (0.1-1.2); EOS # 0.02 (0.04-0.54); EOS % 0.3 % (0.7-7.0); LYMPH # 0.61 (1.18-3.74); LYMPH % 9.3 % (19.3-53.1); MEAN PLATELET VOLUME 9.10 fl (9.4-12.4); MONO # 1.15 (0.24-0.82); NEUT # 4.76 (1.56-6.13); NEUT % 72.3 % (34.0-71.1); RED CELL DISTRIBUTION WIDTH 19.3 % (11.6-14.4)
[2025-05-12 19:44] LABS: MONO % 17.5 % (4.7-12.5)
[2025-05-12] MEDS ORDERED: LACTOBACILLUS ACIDOPHILUS 1 CAP CAP PO ONE (19:46)
[2025-05-12 19:47] LABS: ERYTHROCYTE SEDIMENTATION RATE > 130 mm/hr (0-20)
[2025-05-12 19:52] LABS: ALT/SGPT 18.0 U/L (12-78); AST/SGOT 16.0 U/L (15-37); BILIRUBIN TOTAL 0.43 mg/dL (0.3-1.2); BUN CREA RATIO 14.0 (7.0-25.0); CREATININE SERUM 1.21 mg/dL (0.70-1.30); GFR 59.46; GLOBULINA 4.9 G/DL (2.4-3.5); GLUCOSE FASTING 98.0 mg/dL (65-100); OSMOLALITY SERUM 283.0 MOSM/KG (275-295)
[2025-05-12 20:23] VITALS: BP 130/60
[2025-05-12 20:28] VITALS: BP 1341/60; O2SAT 98
[2025-05-12 21:42] VITALS: BP 137/67; O2SAT 98
[2025-05-12 22:48] LABS: ABG PH 7.415 (7.35-7.45); ABG PO2 91.5 mmHg (80-100); BICARBONATE 24.4 mmol/l (23-25)
[2025-05-12 22:56] LABS: o2 21 %
[2025-05-13 00:44] VITALS: BP 122/71; O2SAT 98
[2025-05-13 06:55] LABS: BASO % 0.2 % (0.1-1.2); EOS # 0.03 (0.04-0.54); EOS % 0.5 % (0.7-7.0); LYMPH # 0.60 (1.18-3.74); LYMPH % 9.5 % (19.3-53.1); MEAN PLATELET VOLUME 9.30 fl (9.4-12.4); MONO # 1.07 (0.24-0.82); NEUT # 4.56 (1.56-6.13); NEUT % 72.5 % (34.0-71.1); RED CELL DISTRIBUTION WIDTH 19.3 % (11.6-14.4)
[2025-05-13 07:01] LABS: MONO % 17.0 % (4.7-12.5)
[2025-05-13 08:00] VITALS: BP 116/60; O2SAT 99
[2025-05-13] MEDS ORDERED: MORPHINE SULFATE 4 MG/ML CARTRIDGE IV PRN (09:45)
[2025-05-13 16:00] VITALS: BP 116/65; O2SAT 97
[2025-05-13] MEDS ORDERED: EMOLLIENTS 6 OZ BOTTLE TOP SCH (17:00)
[2025-05-14 01:33] VITALS: BP 117/73; O2SAT 98
[2025-05-14 07:44] LABS: BASO % 0.2 % (0.1-1.2); EOS # 0.01 (0.04-0.54); EOS % 0.2 % (0.7-7.0); LYMPH # 0.39 (1.18-3.74); LYMPH % 5.9 % (19.3-53.1); MEAN PLATELET VOLUME 8.70 fl (9.4-12.4); MONO # 0.86 (0.24-0.82); NEUT # 5.28 (1.56-6.13); NEUT % 80.0 % (34.0-71.1); RED CELL DISTRIBUTION WIDTH 19.3 % (11.6-14.4)
[2025-05-14 08:05] LABS: MONO % 13.1 % (4.7-12.5)
[2025-05-14 08:19] LABS: BUN CREA RATIO 9.0 (7.0-25.0); CREATININE SERUM 0.87 mg/dL (0.70-1.30); GFR 87.0; GLUCOSE FASTING 78.0 mg/dL (65-100); OSMOLALITY SERUM 277.0 MOSM/KG (275-295)
[2025-05-14 08:28] VITALS: BP 132/67; O2SAT 97
[2025-05-14] MEDS ORDERED: LACTOBACILLUS ACIDOPHILUS 1 CAP CAP PO SCH (10:28)
[2025-05-14] MEDS ORDERED: LOPERAMIDE HCL 2 MG CAPSULE PO NR (11:00)
[2025-05-14 16:00] VITALS: BP 125/69; O2SAT 98
[2025-05-14] MEDS ORDERED: SUCRALFATE 1 G TABLET RECTAL SCH (17:00)
[2025-05-14] MEDS ORDERED: AA 4.25%/CAL/LYTES/DEXT 5% 1,000 ML PERIFERAL SCH (17:00)
[2025-05-14] MEDS ORDERED: FAT EMULSIONS 500 ML IV SCH (21:00)
[2025-05-15 02:38] VITALS: BP 145/69; O2SAT 95
[2025-05-15 08:00] VITALS: BP 129/72; O2SAT 97
[2025-05-15 14:46] LABS: BASO % 0.3 % (0.1-1.2); EOS # 0.00 (0.04-0.54); EOS % 0.0 % (0.7-7.0); LYMPH # 0.44 (1.18-3.74); LYMPH % 5.8 % (19.3-53.1); MEAN PLATELET VOLUME 9.00 fl (9.4-12.4); MONO # 1.03 (0.24-0.82); NEUT # 6.06 (1.56-6.13); NEUT % 79.9 % (34.0-71.1); RED CELL DISTRIBUTION WIDTH 19.3 % (11.6-14.4)
[2025-05-15 14:59] LABS: MONO % 13.6 % (4.7-12.5)
[2025-05-15 15:38] LABS: ALT/SGPT 21.0 U/L (12-78); AST/SGOT 23.0 U/L (15-37); BILIRUBIN TOTAL 0.48 mg/dL (0.3-1.2); BUN CREA RATIO 15.0 (7.0-25.0); CHOL HDL RATIO 2.2 (0-5.0); CREATININE SERUM 0.82 mg/dL (0.70-1.30); GFR 93.15; GLOBULINA 4.2 G/DL (2.4-3.5); GLUCOSE FASTING 68.0 mg/dL (65-100); HDL 61.0 mg/dl (40-60); LDL 58.0 mg/dl (0-130); OSMOLALITY SERUM 276.0 MOSM/KG (275-295); VLDL 14.0 (0-39)
[2025-05-15] MEDS ORDERED: MORPHINE SULFATE 4 MG/ML CARTRIDGE IV PRN (15:45)
[2025-05-15 17:33] VITALS: BP 158/74; O2SAT 100
[2025-05-15] MEDS ORDERED: FAT EMULSIONS 250 ML IV SCH (21:00)
[2025-05-15 22:18] VITALS: BP 143/79
[2025-05-16 03:46] VITALS: BP 138/71; O2SAT 99
[2025-05-16 08:36] VITALS: BP 146/73
[2025-05-16 18:49] VITALS: BP 124/71
[2025-05-17 03:29] VITALS: BP 151/70; O2SAT 100
[2025-05-17 08:28] VITALS: BP 146/74
[2025-05-17] MEDS ORDERED: SUCRALFATE 1 G TABLET PO NR (12:00)
[2025-05-17] MEDS ORDERED: SUCRALFATE 1 G TABLET PO SCH (17:00)
[2025-05-17 19:14] VITALS: BP 137/75
[2025-05-18 02:34] VITALS: BP 144/60; O2SAT 98
[2025-05-18 06:14] LABS: BASO % 0.2 % (0.1-1.2); EOS # 0.10 (0.04-0.54); EOS % 1.7 % (0.7-7.0); LYMPH # 0.48 (1.18-3.74); LYMPH % 8.0 % (19.3-53.1); MEAN PLATELET VOLUME 9.40 fl (9.4-12.4); MONO # 1.16 (0.24-0.82); NEUT # 4.21 (1.56-6.13); NEUT % 70.2 % (34.0-71.1); RED CELL DISTRIBUTION WIDTH 19.4 % (11.6-14.4)
[2025-05-18 06:37] LABS: INR 1.08; MONO % 19.4 % (4.7-12.5)
[2025-05-18 07:09] LABS: ALT/SGPT 15 U/L (12-78); AST/SGOT 14 U/L (15-37); BILIRUBIN TOTAL 0.26 mg/dL (0.3-1.2); BILIRUBIN,CONJUGATED < 0.10 mg/dL (0.0-0.2); BUN CREA RATIO 22 (7.0-25.0); CHOL HDL RATIO 2.4 (0-5.0); CREATININE SERUM 0.51 mg/dL (0.70-1.30); GFR 161.14; GLOBULINA 3.5 G/DL (2.4-3.5); GLUCOSE FASTING 102 mg/dL (65-100); HDL 48 mg/dl (40-60); LDL 46 mg/dl (0-130); OSMOLALITY SERUM 285 MOSM/KG (275-295); VLDL 22 (0-39)
[2025-05-18 09:08] VITALS: BP 120/68; O2SAT 99
[2025-05-18 09:38] LABS: UREA CLEARANCE 21.5 ML/MIN
[2025-05-18 17:35] VITALS: BP 143/83
[2025-05-19 01:50] VITALS: BP 128/77; O2SAT 100
[2025-05-19 06:46] LABS: BASO % 0.1 % (0.1-1.2); EOS # 0.17 (0.04-0.54); EOS % 2.4 % (0.7-7.0); LYMPH # 0.41 (1.18-3.74); LYMPH % 5.9 % (19.3-53.1); MEAN PLATELET VOLUME 9.50 fl (9.4-12.4); MONO # 1.16 (0.24-0.82); NEUT # 5.17 (1.56-6.13); NEUT % 74.3 % (34.0-71.1); RED CELL DISTRIBUTION WIDTH 19.9 % (11.6-14.4)
[2025-05-19 06:53] LABS: MONO % 16.7 % (4.7-12.5)
[2025-05-19 09:15] VITALS: BP 119/64; O2SAT 98
[2025-05-19 17:44] VITALS: BP 136/66; O2SAT 98
[2025-05-20 03:00] VITALS: BP 117/75; O2SAT 98
[2025-05-20] MEDS ORDERED: LOPERAMIDE HCL 2 MG CAPSULE PO SCH (17:00)
[2025-05-20 17:23] VITALS: BP 130/85
[2025-05-20] MEDS ORDERED: CLONAZEPAM 0.5 MG TABLET PO SCH (21:00)
[2025-05-21 01:37] VITALS: BP 93/58; O2SAT 99
[2025-05-21 06:40] LABS: BASO % 0.2 % (0.1-1.2); EOS # 0.14 (0.04-0.54); EOS % 2.8 % (0.7-7.0); LYMPH # 0.51 (1.18-3.74); LYMPH % 10.3 % (19.3-53.1); MEAN PLATELET VOLUME 9.70 fl (9.4-12.4); MONO # 1.08 (0.24-0.82); NEUT # 3.18 (1.56-6.13); NEUT % 64.6 % (34.0-71.1); RED CELL DISTRIBUTION WIDTH 19.3 % (11.6-14.4)
[2025-05-21 07:02] LABS: MONO % 21.9 % (4.7-12.5)
[2025-05-21 07:08] LABS: BUN CREA RATIO 20.0 (7.0-25.0); CREATININE SERUM 0.59 mg/dL (0.70-1.30); GFR 136.2; GLUCOSE FASTING 82.0 mg/dL (65-100); OSMOLALITY SERUM 284.0 MOSM/KG (275-295)
[2025-05-21 09:02] VITALS: BP 114/69; O2SAT 99
[2025-05-21 17:23] VITALS: BP 106/67
[2025-05-22 01:41] VITALS: BP 128/83; O2SAT 99
[2025-05-22 05:43] LABS: BASO % 0.2 % (0.1-1.2); EOS # 0.11 (0.04-0.54); EOS % 1.9 % (0.7-7.0); LYMPH # 0.50 (1.18-3.74); LYMPH % 8.4 % (19.3-53.1); MEAN PLATELET VOLUME 9.40 fl (9.4-12.4); MONO # 1.08 (0.24-0.82); NEUT # 4.20 (1.56-6.13); NEUT % 70.8 % (34.0-71.1); RED CELL DISTRIBUTION WIDTH 18.2 % (11.6-14.4)
[2025-05-22 05:54] LABS: MONO % 18.2 % (4.7-12.5)
[2025-05-22 09:18] VITALS: BP 114/69; O2SAT 98
== END 2025-05-22 13:09 | disposition home or self-care (01) | DRG 378 ==
LOC: ER 10:09 → SURH 19:19 → SEC-K 19:19 → SURH 20:42 → MEDJ 05-15 15:50
PROVIDERS: General Practice; ADMIT Student in an Organized Health Care Education/Training Program; ATTEND Student in an Organized Health Care Education/Training Program
PROC: 02HV33Z Insertion of Infusion Device into Superior Vena Cava, Percutaneous Approach (ICD-10-PCS; principal; 2025-05-15)
PROC: 30243N1 Transfusion of Nonautologous Red Blood Cells into Central Vein, Percutaneous Approach (ICD-10-PCS; 2025-05-21)
DX: K62.5 Hemorrhage of anus and rectum (principal); C20 Malignant neoplasm of rectum; I48.91 Unspecified atrial fibrillation; D64.9 Anemia, unspecified; T45.1X5A Adverse effect of antineoplastic and immunosuppressive drugs, initial encounter